=== PATIENT | female | born 1930 | race Caucasian/White ===

== ENCOUNTER 2016-10-20 13:13 | Emergency (ER) | payer OTHER ==
[~2016-10-20] VITALS: Ht 154.9 cm; Wt 98.0 kg
[~2016-10-20 13:13] MED LIST: ALEVE220 MG PO; AMLODIPINE BESY10 MG PO; COUMADIN2 MG PO; COUMADIN4 MG PO; COUMADIN6 MG PO; DIAZEPAM5 MG PO; DIOVAN HCT 31 TABLE1 PO; ESTRACE42.5 GM VG; LIDODERM 5% P1 PATCH TD; NORCO 5/3251 TABLET PO; NORVASC10 MG PO; OMEPRAZOLE20 MG PO; SPIRONOLACTONE25 MG PO; TRAMADOL HCL50 MG PO; VALSARTAN-HCTZ1 EAC3 PO
[2016-10-20] MEDS ORDERED: KEFLEX500 MG PO (16:51)
[2016-10-20] MEDS ORDERED: LORTAB 5-325 M1 EACH PO (16:51)
[2016-10-20] MEDS ORDERED: SKELAXIN800 MG PO (16:51)
[2016-10-20 17:29] VITALS: BP 132/60
== END 2016-10-20 17:29 | disposition home or self-care (01) ==
LOC: EME 13:13
PROC: 3E0234Z Introduction of Serum, Toxoid and Vaccine into Muscle, Percutaneous Approach (ICD-10-PCS; principal; 2016-10-20)
PROC: 0HQ1XZZ Repair Face Skin, External Approach (ICD-10-PCS; principal; 2016-10-20)
DX: S09.90XA Unspecified injury of head, initial encounter (principal); S01.81XA Laceration without foreign body of other part of head, initial encounter; R07.81 Pleurodynia; W01.0XXA Fall on same level from slipping, tripping and stumbling without subsequent striking against object, initial encounter; I10 Essential (primary) hypertension
CPT/HCPCS: 70450; 71100; 99281; 99285

== ENCOUNTER 2017-04-15 13:34 | Emergency (ER) | payer OTHER ==
[~2017-04-15] VITALS: Ht 154.9 cm; Wt 96.1 kg
[~2017-04-15 13:34] MED LIST changes: +KEFLEX500 MG PO; +LORTAB 5-325 M1 EACH PO; +SKELAXIN800 MG PO
[2017-04-15 14:41] LABS: HEMATOCRIT 43.9 % (36.0-46.0); MCH 29.6 PG (29.0-34.0); MCHC 33.5 G/DL (30.0-36.0); MCV 88.5 FL (83-99); MEAN PLAT.VOLUME 11.7 uM^3 (9.5-12.4); PLATELET COUNT 275 K/uL (156-360); RBC DIS.WIDTH-CV 14.6 % (11.8-14.6); RBC DIS.WIDTH-SD 46.9 % (39-53); RED BLOOD COUNT 4.96 M/uL (3.80-5.20); WHITE BLOOD COUNT 9.1 K/uL (4.1-10.2)
[2017-04-15 14:50] LABS: CHLORIDE 103 mEq/L (99-109); POTASSIUM 4.8 mEq/L (3.7-5.4); SODIUM 138 mEq/L (136-147)
[2017-04-15 14:51] LABS: GLUCOSE 93 mg/dL (70-99)
[2017-04-15 14:53] LABS: ANION GAP 13 MEQ/L (2-14)
[2017-04-15 14:55] LABS: GFR ESTIMATE (CALCULATED) 50 mL/min/
[2017-04-15 14:56] LABS: UREA NITROGEN (BUN) 21 mg/dL (9-23)
[2017-04-15 15:30] LABS: ADD MIUA? YES; BILIRUBIN NEGATIVE; BLOOD NEGATIVE; COLOR YELLOW ((YELLOW)); GLUCOSE (STRIP) NEGATIVE; KETONES 5; LEUKOCYTES SMALL; NITRITE NEGATIVE; PROTEIN (STRIP) NEGATIVE; SPECIFIC GRAVITY 1.009 (1.000-1.030); UROBILINOGEN 0.2 MG/DL (0.2-1.0)
[2017-04-15 15:41] LABS: BACTERIA NONE SEEN /HPF; EPITHELIAL CELLS 1+ /HPF; MUCUS NONE SEEN /LPF; RED BLOOD CELLS 0-5 /HPF (0-5); UCUL ADDED? NO; WHITE BLOOD CELLS 0-5 /HPF (0-5)
[2017-04-15 17:46] VITALS: BP 152/68
== END 2017-04-15 17:49 | disposition home or self-care (01) ==
LOC: EME 13:34
PROVIDERS: Physician Assistant
DX: K92.1 Melena (principal); R10.32 Left lower quadrant pain; I10 Essential (primary) hypertension; I48.91 Unspecified atrial fibrillation; K44.9 Diaphragmatic hernia without obstruction or gangrene; Z79.01 Long term (current) use of anticoagulants; Z90.49 Acquired absence of other specified parts of digestive tract; Z90.81 Acquired absence of spleen; K21.9 Gastro-esophageal reflux disease without esophagitis
CPT/HCPCS: 74177; 80048; 81003; 85027; 86900; 86901; 99281; 99284; J7030